=== PATIENT | female | born 1995 | race Two or more races ===

== ENCOUNTER 2021-08-07 19:54 | Emergency (ER) | payer MEDICAID ==
[~2021-08-07] VITALS: Ht 172.7 cm; Wt 127.0 kg
[2021-08-07 20:28] VITALS: BP 166/81
--- NOTE | 2021-08-07 20:34 | NUR ---
BIBS C/O "FEELING MORE ITCHY, AFTER TAKING PREDNISONE AND CIPROFLOXACIN" TAKING THESE MEDS FOR ROOT CANAL. DENIES ANY SOB. PATIENT ALERT AND ORIENTED X3. AMBULATORY WITH NON LABORED BREATHING IN BED 02
--- NOTE | 2021-08-07 21:00 | NUR ---
Dr. Parham at pt's bedside
[2021-08-07] MEDS ORDERED: FAMOTIDINE (20 MG) 20 MG TABLET ONE (21:27)
[2021-08-07] MEDS ORDERED: predniSONE 20 MG TABLET ONE (21:27)
[2021-08-07] MEDS ORDERED: diphenhydrAMINE HCL 50 MG CAPSULE ONE (21:27)
[2021-08-07] MEDS ORDERED: predniSONE 20 MG TABLET PO ONE (21:30)
[2021-08-07] MEDS ORDERED: FAMOTIDINE (20 MG) 20 MG TABLET PO ONE (21:30)
[2021-08-07] MEDS ORDERED: diphenhydrAMINE HCL 25 MG CAPSULE PO ONE (21:30)
[2021-08-07] MEDS ORDERED: PRED20TA PO (22:28)
[2021-08-07] MEDS ORDERED: FAMO-131 PO (22:28)
[2021-08-07] MEDS ORDERED: HYDR-500 PO (22:28)
[2021-08-07] MEDS ORDERED: EPIN0.3P3 IM (22:30)
--- NOTE | 2021-08-07 22:38 | NUR ---
Patient discharged to home in stable condition. Written and verbal after care instructions given. Patient verbalizes understanding of instruction. PT ambulatory with a steady gait
== END 2021-08-08 00:39 | disposition home or self-care (01) ==
LOC: ER 20:28
DX: L29.9 Pruritus, unspecified (principal); J45.909 Unspecified asthma, uncomplicated; Z88.0 Allergy status to penicillin; Z91.018 Allergy to other foods; Z60.2 Problems related to living alone; Z79.899 Other long term (current) drug therapy
CPT/HCPCS: 99284; J7512; Q0163